=== PATIENT | female | born 1980 | race African-American/Black ===

== ENCOUNTER 2017-01-04 00:24 | Observation (INO) | payer OTHER ==
--- NOTE | 2017-01-04 01:03 | ED ---
Neuro HPI - General Chief Complaint: Neuro Symptoms/Deficit Stated Complaint: R Sided Numbness Time Seen by Provider: 01/04/17 00:44 Source: patient Mode of arrival: ambulatory Limitations: no limitations - History of Present Illness Is the patient presenting with stroke symptoms?: Yes Last Known Well Date: 01/03/17 Last Known Well Time: 20:30 Initial Comments: This patient is a 36-year-old woman presenting with complaint of right arm and leg numbness. The patient stated that she had been lying down at home at approximately 8:30 tonight when she noted the symptoms. She states that when this did not improve she decided to be evaluated here in emergency department. She had similar symptoms in September and was seen here, states that she had received TPA for this, and then was transferred to another hospital. She was told that she had had a stroke. Patient is denying headache, change in vision, speech, or swallowing, weakness or numbness of the left side. Patient is not having chest pain, dyspnea, cough. Location: right arm, right leg History of same: Yes Place: home Severity: moderate Quality: numb Improves With: none Worsens With: none Context: sudden onset Associated Symptoms: denies other symptoms Treatments Prior to Arrival: none - Related Data Home Medications: Home Medications Medication Instructions Recorded Confirmed Cyclobenzaprine [Flexeril] 10 mg PO TID PRN 07/11/15 01/04/17 Ibuprofen [Motrin] 800 mg PO Q8HR PRN 07/11/15 01/04/17 Aspirin 81 mg PO DAILY 01/04/17 01/04/17 Atorvastatin [Lipitor] 40 mg PO DAILY 01/04/17 01/04/17 Allergies/Adverse Reactions: Allergies Allergy/AdvReac Type Severity Reaction Status Date / Time No Known Allergies Allergy Verified 01/04/17 00:30 Review of Systems ROS Statement: Those systems with pertinent positive or pertinent negative responses have been documented in the HPI. ROS Other: All systems not noted in ROS Statement are negative. Constitutional: Denies: fever, chills Eyes: Denies: eye pain, vision change ENT: Denies: hearing loss Respiratory: Denies: cough, dyspnea Cardiovascular: Denies: chest pain, palpitations, orthopnea, syncope Gastrointestinal: Denies: abdominal pain, vomiting, diarrhea Genitourinary: Denies: dysuria, hematuria Musculoskeletal: Denies: back pain Skin: Denies: rash Neurological: Reports: numbness. Denies: headache, weakness, confusion, abnormal gait Hematological/Lymphatic: Denies: easy bleeding General Exam Limitations: no limitations General appearance: alert, in no apparent distress, obese Head exam: Present: atraumatic, normocephalic Eye exam: Present: normal appearance, PERRL, EOMI. Absent: scleral icterus, conjunctival injection, nystagmus ENT exam: Present: normal oropharynx, mucous membranes moist Neck exam: Present: normal inspection Respiratory exam: Present: normal lung sounds bilaterally. Absent: respiratory distress, wheezes, rales, rhonchi, stridor Cardiovascular Exam: Present: regular rate, normal rhythm, normal heart sounds. Absent: systolic murmur, diastolic murmur, rubs, gallop GI/Abdominal exam: Present: soft. Absent: tenderness, guarding, rebound Extremities exam: Present: normal inspection, normal capillary refill. Absent: pedal edema, calf tenderness Back exam: Present: normal inspection Neurological exam: Present: alert, oriented X3, CN II-XII intact, other ( Patient has 5 out of 5 strength throughout the extremities however there is some mild subjective weakness in the right upper and lower extremities when compared with the contralateral.) Skin exam: Present: warm, dry, intact, normal color. Absent: rash Stroke MDM - Lab Data Result diagrams: 01/04/17 00:45 01/04/17 00:45 Lab Results 01/04/17 01/04/17 01/04/17 Range/Units 00:45 00:45 00:45 WBC 9.5 (3.8-10.6) k/uL RBC 4.86 (3.80-5.40) m/uL Hgb 13.6 (11.4-16.0) gm/dL Hct 43.2 (34.0-46.0) % MCV 88.9 (80.0-100.0) fL MCH 27.9 (25.0-35.0) pg MCHC 31.4 (31.0-37.0) g/dL RDW 13.5 (11.5-15.5) % Plt Count 308 (150-450) k/uL Neutrophils % 52 % Lymphocytes % 35 % Monocytes % 6 % Eosinophils % 3 % Basophils % 1 % Neutrophils # 5.0 (1.3-7.7) k/uL Lymphocytes # 3.4 (1.0-4.8) k/uL Monocytes # 0.6 (0-1.0) k/uL Eosinophils # 0.3 (0-0.7) k/uL Basophils # 0.1 (0-0.2) k/uL PT (9.0-12.0) sec INR (<1.1) APTT (22.0-30.0) sec Sodium 142 (137-145) mmol/L Potassium 4.3 (3.5-5.1) mmol/L Chloride 110 H (98-107) mmol/L Carbon Dioxide 22 (22-30) mmol/L Anion Gap 10 mmol/L BUN 10 (7-17) mg/dL Creatinine 0.70 (0.52-1.04) mg/dL Est GFR (MDRD) Af Amer >60 (>60 ml/min/1.73 sqM) Est GFR (MDRD) Non-Af >60 (>60 ml/min/1.73 sqM) Glucose 114 H (74-99) mg/dL Calcium 9.0 (8.4-10.2) mg/dL Total Bilirubin 0.4 (0.2-1.3) mg/dL AST 15 (14-36) U/L ALT 24 (9-52) U/L Alkaline Phosphatase 71 (38-126) U/L Total Creatine Kinase 69 (30-135) U/L CK-MB (CK-2) <0.2 (0.0-2.4) ng/mL CK-MB (CK-2) Rel Index Troponin I <0.012 (0.000-0.034) ng/mL Total Protein 6.7 (6.3-8.2) g/dL Albumin 3.7 (3.5-5.0) g/dL 01/04/17 Range/Units 00:45 WBC (3.8-10.6) k/uL RBC (3.80-5.40) m/uL Hgb (11.4-16.0) gm/dL Hct (34.0-46.0) % MCV (80.0-100.0) fL MCH (25.0-35.0) pg MCHC (31.0-37.0) g/dL RDW (11.5-15.5) % Plt Count (150-450) k/uL Neutrophils % % Lymphocytes % % Monocytes % % Eosinophils % % Basophils % % Neutrophils # (1.3-7.7) k/uL Lymphocytes # (1.0-4.8) k/uL Monocytes # (0-1.0) k/uL Eosinophils # (0-0.7) k/uL Basophils # (0-0.2) k/uL PT 10.3 (9.0-12.0) sec INR 1.0 (<1.1) APTT 24.6 (22.0-30.0) sec Sodium (137-145) mmol/L Potassium (3.5-5.1) mmol/L Chloride (98-107) mmol/L Carbon Dioxide (22-30) mmol/L Anion Gap mmol/L BUN (7-17) mg/dL Creatinine (0.52-1.04) mg/dL Est GFR (MDRD) Af Amer (>60 ml/min/1.73 sqM) Est GFR (MDRD) Non-Af (>60 ml/min/1.73 sqM) Glucose (74-99) mg/dL Calcium (8.4-10.2) mg/dL Total Bilirubin (0.2-1.3) mg/dL AST (14-36) U/L ALT (9-52) U/L Alkaline Phosphatase (38-126) U/L Total Creatine Kinase (30-135) U/L CK-MB (CK-2) (0.0-2.4) ng/mL CK-MB (CK-2) Rel Index Troponin I (0.000-0.034) ng/mL Total Protein (6.3-8.2) g/dL Albumin (3.5-5.0) g/dL Past Medical History Additional Past Medical History / Comment(s): back pain, CVA History of Any Multi-Drug Resistant Organisms: None Reported Past Surgical History: Hernia Repair, Tubal Ligation Past Psychological History: Anxiety Smoking Status: Current every day smoker Past Alcohol Use History: Occasional Past Drug Use History: None Reported Course Vital Signs 01/04/17 01/04/17 00:26 01:14 Temperature 97.4 F L Pulse Rate 106 H 94 Respiratory 20 16 Rate Blood Pressure 158/110 134/96 O2 Sat by Pulse 100 97 Oximetry Disposition Clinical Impression: Transient cerebral ischemia Disposition: ADMITTED IP TO THIS HOSP Condition: Fair
[2017-01-04 01:09] LABS: Basophils # (A) 0.1 k/uL (0-0.2); Basophils % (A) 1 %; CH 28.3; CHCM 32.1; Eosinophils # (A) 0.3 k/uL (0-0.7); Eosinophils % (A) 3 %; HCT 43.2 % (34.0-46.0); HDW 2.41; HGB 13.6 gm/dL (11.4-16.0); Luc # (Auto) 0.27; Luc % (Auto) 3; Lymphocytes # (A) 3.4 k/uL (1.0-4.8); Lymphocytes % (A) 35 %; MCH 27.9 pg (25.0-35.0); MCHC 31.4 g/dL (31.0-37.0); MCV 88.9 fL (80.0-100.0); Mean Platelet Volume 7.9; Monocytes # (A) 0.6 k/uL (0-1.0); Monocytes % (A) 6 %; Neutrophils % (A) 52 %; RBC 4.86 m/uL (3.80-5.40); RDW 13.5 % (11.5-15.5); WBC 9.5 k/uL (3.8-10.6); WBC (Perox) 9.55
[2017-01-04 01:16] LABS: Partial Thromboplastin Time 24.6 sec (22.0-30.0); Prothrombin Time 10.3 sec (9.0-12.0)
[2017-01-04 01:17] LABS: ALT 24 U/L (9-52); AST 15 U/L (14-36); Alkaline Phosphatase 71 U/L (38-126); Anion Gap 10 mmol/L; Blood Urea Nitrogen 10 mg/dL (7-17); Carbon Dioxide 22 mmol/L (22-30); Chloride 110 mmol/L (98-107); Glucose 114 mg/dL (74-99); Non-African American GFR(MDRD) >60 (>60 ml/min/1.73 sqM); Potassium 4.3 mmol/L (3.5-5.1); Sodium 142 mmol/L (137-145); Total Bilirubin 0.4 mg/dL (0.2-1.3); Total Protein 6.7 g/dL (6.3-8.2)
[2017-01-04 01:26] LABS: Creatine Kinase 69 U/L (30-135)
[2017-01-04 01:39] LABS: Creatine Kinase MB <0.2 ng/mL (0.0-2.4); Troponin I <0.012 ng/mL (0.000-0.034)
--- NOTE | 2017-01-04 01:45 | CT ---
EXAM: CT Head Without Intravenous Contrast. CLINICAL HISTORY: Reason: Neuro Deficits TECHNIQUE: Axial computed tomography images of the head/brain without intravenous contrast. CTDI is 57.40 mGy and DLP is 1098.80 mGy-cm COMPARISON: CT head 09/29/2016 FINDINGS: Artifacts: Metallic artifact left occipital region partially obscuring cerebellum Brain: No evidence of acute cerebral infarction or intracranial hemorrhage. No mass effect or midline shift. No abnormal extra-axial collections. . Ventricles: Unremarkable. No ventriculomegaly. Bones/joints: No evidence of skull fracture. Sinuses: Unremarkable as visualized. No acute sinusitis. Mastoid air cells: Unremarkable as visualized. No mastoid effusion. IMPRESSION: No evidence of acute intracranial abnormality.
--- NOTE | 2017-01-04 02:14 | XR ---
EXAM: XR Chest, 1 View. CLINICAL HISTORY: Reason: altered mental status TECHNIQUE: Frontal view of the chest. COMPARISON: No relevant prior studies available. FINDINGS: Lungs: Lungs are clear. Pleural space: No evidence of pleural disease or effusion. No pneumothorax. Heart: Heart size and mediastinal structures are within normal limits. Mediastinum: Unremarkable. Bones/joints: Unremarkable. IMPRESSION: No evidence of acute cardiopulmonary disease.
[2017-01-04] MEDS ORDERED: SODIUM CHLORIDE 0.9% 1,000 ML IV SCH (03:00)
[2017-01-04 03:42] LABS: Glucose,Whole Blood 110 mg/dL (75-99)
[2017-01-04 04:01] VITALS: BMI 60.6
[2017-01-04] MEDS: DOCUSATE 100 MG CAP PO SCH ×2 (08:03→16:30)
[2017-01-04] MEDS: FAMOTIDINE 20 MG TAB PO SCH ×2 (08:03→21:00)
--- NOTE | 2017-01-04 08:24 | US ---
EXAMINATION TYPE: US carotid duplex BILAT DATE OF EXAM: 01/04/2017 8:11 AM COMPARISON: NONE CLINICAL HISTORY: Stenosis. Right sided numbness EXAM MEASUREMENTS: RIGHT: Peak Systolic Velocity (PSV) cm/sec ----- Right CCA: 131.9 ----- Right ICA: 98.3 ----- Right ECA: 104.2 ICA/CCA ratio: 0.7 RIGHT: End Diastole cm/sec ----- Right CCA: 21.5 ----- Right ICA: 25.4 ----- Right ECA: 33.3 LEFT: Peak Systolic Velocity (PSV) cm/sec ----- Left CCA: 141.7 ----- Left ICA: 93.5 ----- Left ECA: 83.8 ICA/CCA ratio: 0.7 LEFT: End Diastole cm/sec ----- Left CCA: 27.4 ----- Left ICA: 33.8 ----- Left ECA: 11.1 VERTEBRALS (direction of flow): Right Vertebral: unable to visualize Left Vertebral: antegrade IMPRESSION: Minimal plaque noted bilateral bifurcations. No significant stenosis. Unable to visuali ze right vertebral artery Criteria for Assigning % of Stenosis / Diameter reduction (Estimation based on the indirect measurements of the internal carotid artery velocities (ICA PSV). 1. Normal (no stenosis)=ICA PSV < 125 cm/s: ratio < 2.0: ICA EDV<40 cm/s. 2. Less than 50% stenosis=ICA PSV < 125 cm/s: ratio < 2.0: ICA EDV<40 cm/s. 3. 50 to 69% stenosis=ICA PSV of 125 to 230 cm/s: ration 2.0 ? 4.0: ICA EDV 40-100 cm/s. 4. Greater than 70% stenosis to near occlusion= ICA PSV > 230 cm/s: ratio > 4.0: ICA EDV > 100 cm/s. 5. Near occlusion= ICA PSV velocities may be low or undetectable: variable ratio and ICA EDV. 6. Total occlusion=unable to detect flow.
--- NOTE | 2017-01-04 10:41 | ECHOF ---
Referral Reason:Thrombus MEASUREMENTS -------- HEIGHT: 172.7 cm WEIGHT: 172.4 kg BP: 98/61 RVIDd: 3.2 cm (< 3.3) IVSd: 1.2 cm (0.6 - 1.1) LVIDd: 3.5 cm (3.9 - 5.3) LVPWd: 1.3 cm (0.6 - 1.1) IVSs: 1.6 cm LVIDs: 2.5 cm LVPWs: 2.0 cm LA Diam: 3.2 cm (2.7 - 3.8) LAESV Index (A-L): 12.94 ml/m Ao Diam: 3.1 cm (2.0 - 3.7) AV Cusp: 2.3 cm (1.5 - 2.6) MV EXCURSION: 13.666 mm (> 18.000) MV EF SLOPE: 48 mm/s (70 - 150) EPSS: 0.4 cm MV E Boaz: 0.74 m/s MV DecT: 307 ms MV A Boaz: 0.53 m/s MV E/A Ratio: 1.40 FINDINGS -------- Sinus rhythm. This was a technically good study. The left ventricular size is normal. There is mild concentric left ventricular hypertrophy. Overall left ventricular systolic function is normal with, an EF between 60 - 65 %. The right ventricle is normal in size. Normal LA size by volume 22+/-6 ml/m2. The right atrium is normal in size. The aortic valve is trileaflet and appears structurally normal. Normal appearing mitral valve. No mitral regurgitation. The tricuspid valve appears structurally normal. No regurgitation noted Trace/mild (physiologic) pulmonic regurgitation. The aortic root size is normal. Normal inferior vena cava with normal inspiratory collapse consistent with estimated right atrial pressure of 5 mmHg. There is no pericardial effusion. CONCLUSIONS -------- 1. Sinus rhythm. 2. The tricuspid valve appears structurally normal. 3. Trace/mild (physiologic) pulmonic regurgitation. 4. The aortic root size is normal. 5. Normal inferior vena cava with normal inspiratory collapse consistent with estimated right atrial pressure of 5 mmHg. 6. There is no pericardial effusion. 7. This was a technically good study. 8. The left ventricular size is normal. 9. There is mild concentric left ventricular hypertrophy. 10. Overall left ventricular systolic function is normal with, an EF between 60 - 65 %. 11. The right ventricle is normal in size. 12. Normal LA size by volume 22+/-6 ml/m2. 13. The aortic valve is trileaflet and appears structurally normal. 14. Normal appearing mitral valve. SENIOR BUSINESS MANAGER: Leonor Pacheco RDCS
[2017-01-04] MEDS ORDERED: ALPRAZolam 0.25 MG TAB PO PRN (11:22)
--- NOTE | 2017-01-04 11:27 | P.HPIM ---
History of Present Illness H&P Date: 01/04/17 Chief Complaint: Right arm numbness and leg 36-year-old morbid obese female presented to the emergency room to be evaluated for a chief complaint of right arm and right leg numbness. Patient stated occurred around 8:30 in the evening she was lying down she noted the symptoms. She stated that when they did not improve she decided to be evaluated in the emergency room. Patient stated she had a similar episode in September 2016. Patient stated at that time she was given TPA and was transferred to another tertiary center patient states she was told that she had a stroke. admission in September 2016 patient did have a CTA which showed no intracranial bleed. Patient was given TPA. Patient continued to have persistent right-sided deficit. At that time the decision was to transfer the patient to [facility] Patient this admission is denying headache change in vision speech or swallowing. Patient denies any numbness on the left side. Patient denies chest pain shortness of breath or cough no recent cough fever or chills. Patient states is been no new changes in her health history. Patient will move all extremities appropriately. Face is symmetric A neurology consultation pending patient has had echocardiogram done on January 04 shows left ventricular systolic function normal with an EF between 60 and 65%.. Carotid Doppler studies were negative there was no significant carotid stenosis electrolytes were reviewed normal limits blood sugar 110 troponins negative Review of Systems Essentially unremarkable except as mentioned in the present illness Past Medical History Past Medical History: CVA/TIA, Hyperlipidemia Additional Past Medical History / Comment(s): back pain, CVA History of Any Multi-Drug Resistant Organisms: None Reported Past Surgical History: Hernia Repair, Tubal Ligation Past Anesthesia/Blood Transfusion Reactions: No Reported Reaction Past Psychological History: Anxiety Smoking Status: Current every day smoker Past Alcohol Use History: Occasional Past Drug Use History: None Reported - Past Family History Father Family Medical History: Cancer Additional Family Medical History / Comment(s): colon CA Mother Family Medical History: Asthma, Diabetes Mellitus Medications and Allergies Home Medications Medication Instructions Recorded Confirmed Type Cyclobenzaprine [Flexeril] 10 mg PO TID PRN 07/11/15 01/04/17 History Ibuprofen [Motrin] 800 mg PO QID PRN 07/11/15 01/04/17 History ALPRAZolam [Xanax] 0.25 mg PO TID PRN 01/04/17 01/04/17 History Aspirin 81 mg PO DAILY 01/04/17 01/04/17 History Atorvastatin [Lipitor] 40 mg PO DAILY 01/04/17 01/04/17 History PARoxetine HCL [Paxil] 40 mg PO DAILY 01/04/17 01/04/17 History Allergies Allergy/AdvReac Type Severity Reaction Status Date / Time No Known Allergies Allergy Verified 01/04/17 00:30 Physical Exam Vitals: Vital Signs Temp Pulse Pulse Pulse Resp BP BP 01/04/17 10:48 97.7 F 81 20 140/95 01/04/17 08:00 98.1 F 69 15 93/62 01/04/17 07:00 63 21 98/61 01/04/17 06:00 67 18 95/52 01/04/17 05:00 94 35 H 117/71 01/04/17 04:00 123 H 23 01/04/17 03:50 98.0 F 150 H 22 177/115 01/04/17 03:27 82 20 115/59 Pulse Ox 01/04/17 10:48 99 01/04/17 08:00 97 01/04/17 07:00 98 01/04/17 06:00 96 01/04/17 05:00 99 01/04/17 04:00 98 01/04/17 03:50 01/04/17 03:27 Intake and Output 01/03/17 01/04/17 01/04/17 22:59 06:59 14:59 Intake Total 100 Balance 100 Intake: IV 100 Sodium Chloride 0.9% 1, 100 000 ml @ 100 mls/hr IV . Q10H FORMERLY [facility], 1928–1983 Rx#:[id number] Other: Voiding Method Toilet # Voids 1 Weight 180.8 kg GENERAL APPEARANCE: 36-year-old female patient is alert, oriented 3 Sitting up in bed appears in no acute distress VITAL SIGNS: Reviewed HEENT: Head is normocephalic and atraumatic. Pupils are equal and reactive. The nares are patent. Oropharynx is clear without lesions. NECK: Supple without lymphadenopathy. Traches midline. HEART: S1, S2. Regular rate and rhythm. Denying chest pain no murmur LUNGS: No crackles or wheezes are heard. Adequate air movement bilaterally on room air sats 95% ABDOMEN: Soft obese, nontender, nondistended with good bowel sounds. No peritoneal signs. No palpable organomegaly or masses. EXTREMITIES: Normal skin color and turgor. No cyanosis, rash, ulceration, clubbing or edema. Radial pedal pulses are 2/4 bilaterally. NEUROLOGICAL: No focal deficits. Strength and sensation are grossly intact. Moves all extremities appropriately no pronator drift stating the numbness on the right upper and lower extremity resolving no numbness involving face no numbness involving the left side Results CBC & Chem 7: 01/04/17 00:45 01/04/17 00:45 Labs: Abnormal Lab Results - Last 24 Hours (Table) 01/04/17 Range/Units 03:39 POC Glucose (mg/dL) 110 H (75-99) mg/dL Thrombosis Risk Factor Assmnt - Choose All That Apply Any of the Below Risk Factors Present?: Yes Each Factor Represents 1 point: Obesity (BMI >25) Other Risk Factors: No Other congenital or acquired thrombophilia - If yes, enter type in comment: No Thrombosis Risk Factor Assessment Total Risk Factor Score: 1 Thrombosis Risk Factor Assessment Level: Low Risk Assessment and Plan Plan: Impression Present on admission new onset left upper extremity and lower extremity numbness suspect TIA Super morbid obesity BMI 60 Suspect underlying obstructive sleep apnea Dyslipidemia Recent episode September 2016 right side numbness received TPA Preserved LV function echocardiogram January 04 EF 55% Normal carotid Doppler studies no evidence of carotid artery stenosis Depressive anxiety disorder nonspecified Plan Resume home meds as appropriate PT OT eval Continue aspirin and Lipitor DVT and GI prophylaxis Await neurology eval pending Further recommendations The above dictated assessment and findings were discussed with dr albrecht Impression and the plan of care have been dictated as directed. Nasima Blanco nurse practitioner acting as a scribe for dr albrecht
[2017-01-04 11:42] LABS: Cholesterol 161 mg/dL (<200); HDL Cholesterol 57 mg/dL (40-60); Triglycerides 82 mg/dL (<150)
--- NOTE | 2017-01-04 17:24 | HP ---
DATE OF ADMISSION: 01/04/2017 CHIEF COMPLAINT: Dysesthesias in the right upper and lower extremities. HISTORY OF PRESENT ILLNESS: This is another admission for this 36-year-old -Citizen Of [place] female. Her history is somewhat difficult. She presented because she felt some weakness and dysesthesias in the right upper extremity. She is right-handed. She had no trouble with speech. She had no change in vision or hearing. She came to the emergency room and apparently studies were negative. In 2005 she reports she had a TIA. In September 2016 she was in the hospital for some right-sided weakness which was transient. She was in the office on October 29, 2016, and was to return for a complete physical, but never did. She came in this time because of the right-sided complaints. She has had no headache. REVIEW OF SYSTEMS: She has had no change in vision or hearing, headache, history of hypertension, syncope, dizziness, chest pain, shortness of breath, cough, hemoptysis, heart disease, murmurs, rheumatic fever, palpitations, abdominal pain, hematemesis, melena, hematochezia, jaundice, hematuria, frequency, urgency, vaginal discharge or bleeding, arthralgias, diabetes, etc. Past medical history, family history, and personal and social histories reveal that she is NOT ALLERGIC TO ANY MEDICATION. She has been on: 1. Lipitor 40 mg a day. 2. Aspirin 81 mg daily. 3. Ibuprofen 800 mg 4 times a day. 4. Cyclobenzaprine 10 mg t.i.d. p.r.n. for back pain. She is overweight. Remainder of her history is unremarkable. The only surgery she has had is a tubal ligation. She does smoke. She drinks occasionally. PHYSICAL EXAMINATION: Blood pressure is 112/76 with a pulse of 108 and regular, respirations of 18. She is afebrile. In general she appeared to be an overweight and in no acute distress. Skin color is normal. Skin is warm and dry. Lymph nodes are not enlarged. Head, ears, eyes, nose, mouth and throat are normal. Neck veins are not distended. Thyroid was not enlarged. Chest is clear. Cardiac exam is normal, with normal sinus rhythm with no murmurs or extra sounds. The abdomen is soft, nontender, without any visceromegaly or masses. It is protuberant. Extremities are normal. She seems to have a little bit of weakness in the right upper extremity, but this seems to be more in terms of dropper tank storage. When fingers are challenged independently, strength seems to be normal. ( ) ongoing. She is admitted to the hospital with the diagnoses: 1. ? left-sided cerebrovascular accident or transient ischemic attack. 2. Previous transient ischemic attack/cerebrovascular accidents. 3. Rule out hypercoagulable state. PLAN: 1. Bed rest. 2. IV fluids. 3. Frequent monitoring of her neurologic status and vital signs. 4. Neurology consult and workup.
--- NOTE | 2017-01-04 17:54 | P.CNNES ---
History of Present Illness Consult date: 01/04/17 History of Present Illness: The patient 36-year-old woman with history of right arm and right leg tingling which has been intermittent since yesterday evening. The patient had a similar episode of right arm and right leg tingling occurring in September 2016. At that time she was transferred to an outside hospital. She had received TPA and was transferred to [place]. She states she had an MRI there which was normal. The patient had an echocardiogram and carotid ultrasound which were unremarkable. She had a CT of the brain which did not show any acute findings. She reports that the tingling occurs it lasts for maybe 10-15 minutes only. She denies any neck pain She reports that yesterday evening she had a episode of right arm and leg tingling sensation which showed been coming and going since last evening. The patient has been on baby aspirin but has not taken it consistently. At the time of her previous admission she was transferred to [place] and had received TPA. She states she has been and otherwise doing fine since September up until yesterday. [place] [facility] she had similar findings of left sided tingling in the arm and leg. He reports she had an MRI in [place] last September and she reports it was negative. X Patient denies any weakness dizziness speech disturbance or any other neurologic complaint. Review of Systems Constitutional: Denies chills, Denies fever Eyes: denies blurred vision, denies pain Ears, nose, mouth and throat: Denies headache, Denies sore throat Cardiovascular: Denies chest pain, Denies shortness of breath Gastrointestinal: Denies abdominal pain, Denies diarrhea, Denies nausea, Denies vomiting Genitourinary: Denies dysuria, Denies hematuria Musculoskeletal: Denies myalgias Integumentary: Denies pruritus, Denies rash Neurological: Denies numbness, Denies weakness Psychiatric: Denies anxiety, Denies depression Endocrine: Denies fatigue, Denies weight change Past Medical History Past Medical History: CVA/TIA, Hyperlipidemia Additional Past Medical History / Comment(s): back pain, CVA History of Any Multi-Drug Resistant Organisms: None Reported Past Surgical History: Hernia Repair, Tubal Ligation Past Anesthesia/Blood Transfusion Reactions: No Reported Reaction Past Psychological History: Anxiety Smoking Status: Current every day smoker Past Alcohol Use History: Occasional Past Drug Use History: None Reported - Past Family History Father Family Medical History: Cancer Additional Family Medical History / Comment(s): colon CA Mother Family Medical History: Asthma, Diabetes Mellitus Medications and Allergies Home Medications Medication Instructions Recorded Confirmed Type Cyclobenzaprine [Flexeril] 10 mg PO TID PRN 07/11/15 01/04/17 History Ibuprofen [Motrin] 800 mg PO QID PRN 07/11/15 01/04/17 History ALPRAZolam [Xanax] 0.25 mg PO TID PRN 01/04/17 01/04/17 History Aspirin 81 mg PO DAILY 01/04/17 01/04/17 History Atorvastatin [Lipitor] 40 mg PO DAILY 01/04/17 01/04/17 History PARoxetine HCL [Paxil] 40 mg PO DAILY 01/04/17 01/04/17 History Allergies Allergy/AdvReac Type Severity Reaction Status Date / Time No Known Allergies Allergy Verified 01/04/17 00:30 Physical Examination - Vital Signs Vital Signs: Vital Signs Temp Pulse Pulse Pulse Resp BP BP 01/04/17 15:00 97.3 F L 85 19 126/72 01/04/17 10:48 97.7 F 81 20 140/95 01/04/17 08:00 98.1 F 69 15 93/62 01/04/17 07:00 63 21 98/61 01/04/17 06:00 67 18 95/52 01/04/17 05:00 94 35 H 117/71 01/04/17 04:00 123 H 23 01/04/17 03:50 98.0 F 150 H 22 177/115 01/04/17 03:27 82 20 115/59 Pulse Ox 01/04/17 15:00 99 01/04/17 10:48 99 01/04/17 08:00 97 01/04/17 07:00 98 01/04/17 06:00 96 01/04/17 05:00 99 01/04/17 04:00 98 01/04/17 03:50 01/04/17 03:27 Intake and Output 01/04/17 01/04/17 01/04/17 06:59 14:59 22:59 Intake Total 100 Balance 100 Intake: IV 100 Sodium Chloride 0.9% 1, 100 000 ml @ 100 mls/hr IV . Q10H [facility] Rx#:[id number] Other: Voiding Method Toilet Toilet # Voids 1 2 Weight 180.8 kg - Constitutional General appearance: obese - EENT EENT: PERRL, hearing intact, vision intact - Respiratory Respiratory: lungs clear - Cardiovascular Cardiovascular: regular rate, normal S1, normal S2 - Integumentary Integumentary: normal - Neurologic Cranial nerve examination: EOMI, VFF, face symmetric, tongue midline Sensorimotor examination: other (Decreased light touch by 30% right arm) Detailed motor examination: grossly full strength in all extremities - Psychiatric Psychiatric: mood/affect appropriate Results - Laboratory Findings CBC and BMP: 01/04/17 00:45 01/04/17 00:45 Abnormal Lab Findings: Abnormal Labs 01/04/17 03:39 POC Glucose (mg/dL) 110 H Assessment and Plan (1) Transient cerebral ischemia Status: Acute Code(s): G45.9 - TRANSIENT CEREBRAL ISCHEMIC ATTACK, UNSPECIFIED Plan: The patient is a 36-year-old woman with history of right arm and right leg tingling. Currently she has only minimal right arm tingling. Her neurologic examination fails to demonstrate any focal deficit. Recommend adding Plavix to current stroke prophylactic regimen patient had a echo and carotid ultrasound which were unremarkable. Recommend MRI which can be done outpatient to evaluate for possible demyelinating disorder
[2017-01-04 23:49] VITALS: TEMP 98.2
[2017-01-05] MEDS: DOCUSATE 100 MG CAP PO SCH ×2 (00:09→07:54)
[2017-01-05 07:49] VITALS: BP 149/66; PULSE 72; RESP 19
[2017-01-05] MEDS: FAMOTIDINE 20 MG TAB PO SCH (07:55)
[2017-01-05] MEDS ORDERED: PARoxetine 20 MG TAB PO SCH (09:00)
[2017-01-05] MEDS ORDERED: CLOPIDOGREL 75 MG TAB PO SCH (09:00)
[2017-01-05] MEDS ORDERED: ASPIRIN 81 MG CHEW PO SCH (09:00)
[2017-01-05] MEDS ORDERED: ATORVASTATIN 40 MG TAB PO SCH (09:00)
--- NOTE | 2017-01-05 12:09 | P.DS ---
Providers Date of admission: 01/04/17 02:53 Expected date of discharge: 01/05/17 Attending physician: Sung Albrecht Consults: Dr. Santamaria Primary care physician: Sung Albrecht Hospital Course: 6-year-old morbid obese female presented to the emergency room to be evaluated for a chief complaint of right arm and right leg numbness. Patient stated occurred around 8:30 in the evening she was lying down she noted the symptoms. She stated that when they did not improve she decided to be evaluated in the emergency room. Patient stated she had a similar episode in September 2016. Patient stated at that time she was given TPA and was transferred to another tertiary center patient states she was told that she had a stroke. admission in September 2016 patient did have a CTA which showed no intracranial bleed. Patient was given TPA. Patient continued to have persistent right-sided deficit. At that time the decision was to transfer the patient to [facility] Patient this admission is denying headache change in vision speech or swallowing. Patient denies any numbness on the left side. Patient denies chest pain shortness of breath or cough no recent cough fever or chills. Patient states is been no new changes in her health history. Patient will move all extremities appropriately. Face is symmetric patient had an MRI in 2015 and September she reports it was a negative study. Neurology recommended adding Plavix and repeating the MRI in the outpatient setting for possible demyelinating disorder. A neurology consultation obtained patient has had echocardiogram done on January 04 shows left ventricular systolic function normal with an EF between 60 and 65% .. Carotid Doppler studies were negative there was no significant carotid stenosis electrolytes were reviewed normal limits blood sugar 110 troponins negative At the time of discharge symptoms had resolved patient was felt to be back to baseline appropriate to proceed with a discharge to home Impression Present on admission new onset right upper extremity and lower extremity numbness suspect TIA Super morbid obesity BMI 60 Suspect underlying obstructive sleep apnea Dyslipidemia Recent episode September 2016 right side numbness received TPA Preserved LV function echocardiogram January 04 EF 55% Normal carotid Doppler studies no evidence of carotid artery stenosis Depressive anxiety disorder nonspecified The above dictated assessment and findings were discussed with Dr. Albrecht Impression and the plan of care have been dictated as directed. Nasima Blanco nurse practitioner acting as a scribe for dr albrecht Patient Condition at Discharge: Fair Plan - Discharge Summary New Discharge Prescriptions: Clopidogrel [Plavix] 75 mg PO DAILY #30 tab Discharge Medication List Cyclobenzaprine [Flexeril] 10 mg PO TID PRN 07/11/15 [History] Ibuprofen [Motrin] 800 mg PO QID PRN 07/11/15 [History] ALPRAZolam [Xanax] 0.25 mg PO TID PRN 01/04/17 [History] Aspirin 81 mg PO DAILY 01/04/17 [History] Atorvastatin [Lipitor] 40 mg PO DAILY 01/04/17 [History] PARoxetine HCL [Paxil] 40 mg PO DAILY 01/04/17 [History] Clopidogrel [Plavix] 75 mg PO DAILY #30 tab 01/05/17 [Rx] Follow up Appointment(s)/Referral(s): Sung Albrecht MD [Primary Care Provider] - 1-2 days Queenie Santamaria MD [STAFF PHYSICIAN] - 1 Week Discharge Disposition: HOME SELF-CARE
--- NOTE | 2017-01-05 21:40 | PN ---
DATE OF SERVICE: 01/05/2017 CHIEF COMPLAINT: Left-sided TIA? HISTORY OF PRESENT ILLNESS: This lady is doing well and almost all of her dysesthesias are gone from her affected side. She can probably go home. PHYSICAL EXAM: Her vital signs are normal. The chest is clear. Cardiac is normal. ABDOMEN: Soft, nontender. Neurologically, she is intact. IMPRESSION: Transient ischemic attack. PLAN: Probably home today and this will be arranged by the nurse practitioner.
== END 2017-01-05 17:03 | disposition home or self-care (01) ==
LOC: EC 00:24 → INTOOBSV 02:53 → 6ICU 02:53 → 4MS4W 10:18
PROVIDERS: ADMIT Family Medicine; ATTEND Family Medicine
DX: R20.0 Anesthesia of skin (principal); R20.8 Other disturbances of skin sensation; M54.9 Dorsalgia, unspecified; F41.9 Anxiety disorder, unspecified; F32.9 Major depressive disorder, single episode, unspecified; E78.5 Hyperlipidemia, unspecified; Z68.44 Body mass index [BMI] 60.0-69.9, adult; E66.01 Morbid (severe) obesity due to excess calories; F17.200 Nicotine dependence, unspecified, uncomplicated; Z79.899 Other long term (current) drug therapy; Z86.73 Personal history of transient ischemic attack (TIA), and cerebral infarction without residual deficits; Z83.3 Family history of diabetes mellitus; Z79.82 Long term (current) use of aspirin
CPT/HCPCS: 99285; 36415; 93005; 93306; 97161; 92610; 92523; 80061; 80053; 82550; 82553; 84484; 85025; 85610; 85730; 71010; 93880; 70450; G0378 ×2

== ENCOUNTER 2017-02-23 22:00 | Emergency (ER) | payer OTHER ==
[2017-02-23] MEDS ORDERED: HYDROmorphone 1 MG/ML 1 ML SYRINGE IVP STA (22:43)
--- NOTE | 2017-02-23 22:46 | ED ---
General Adult HPI - General Chief complaint: Extremity Injury, Lower Stated complaint: BACK PAIN Time Seen by Provider: 02/23/17 22:04 Source: patient, EMS, RN notes reviewed Mode of arrival: EMS Limitations: no limitations - History of Present Illness Initial comments: Patient is a 37-year-old female presents to the emergency room for evaluation of left-sided low back pain. Patient states she began having pain when she woke up on Wednesday. Patient states since then the pain has worsened. Patient states the pain slightly improves while standing or laying down flat. Patient states while standing she sometimes feels an aching/numbing sensation radiating down her left leg from her left lower back. Patient denies recent falls or trauma to her back. Patient states the pain is worse when she sitting up or bending forward. Patient states she has not been taking anything to relieve her symptoms. Patient denies any numbness or tingling in her toes. Patient denies saddle anesthesia. Patient denies urinary or fecal incontinence. Patient denies weakness. Patient states she is having 10 out of 10 constant pain and cannot get comfortable. - Related Data Home Medications Medication Instructions Recorded Confirmed Cyclobenzaprine [Flexeril] 10 mg PO TID PRN 07/11/15 02/23/17 Ibuprofen [Motrin] 800 mg PO QID PRN 07/11/15 02/23/17 ALPRAZolam [Xanax] 0.25 mg PO TID PRN 01/04/17 02/23/17 Aspirin 81 mg PO DAILY 01/04/17 02/23/17 Atorvastatin [Lipitor] 40 mg PO DAILY 01/04/17 02/23/17 PARoxetine HCL [Paxil] 40 mg PO DAILY 01/04/17 02/23/17 Acetaminophen Tab [Tylenol Tab] 2,000 mg PO BID PRN 02/23/17 02/23/17 Previous Rx's Medication Instructions Recorded Clopidogrel [Plavix] 75 mg PO DAILY #30 tab 01/05/17 HYDROcodone/APAP 5-325MG [[place] 1 tab PO Q6HR PRN #12 tab 02/24/17 5-325] predniSONE 40 mg PO DAILY 4 Days 02/24/17 Allergies Allergy/AdvReac Type Severity Reaction Status Date / Time No Known Allergies Allergy Verified 02/23/17 22:32 Review of Systems ROS Statement: Those systems with pertinent positive or pertinent negative responses have been documented in the HPI. ROS Other: All systems not noted in ROS Statement are negative. Past Medical History Past Medical History: CVA/TIA, Hyperlipidemia Additional Past Medical History / Comment(s): back pain, CVA History of Any Multi-Drug Resistant Organisms: None Reported Past Surgical History: Hernia Repair, Tubal Ligation Past Anesthesia/Blood Transfusion Reactions: No Reported Reaction Past Psychological History: Anxiety Smoking Status: Current every day smoker Past Alcohol Use History: Occasional Past Drug Use History: None Reported - Past Family History Father Family Medical History: Cancer Additional Family Medical History / Comment(s): colon CA Mother Family Medical History: Asthma, Diabetes Mellitus General Exam - General Exam Comments Initial Comments: Laying in exam room on the right side Limitations: no limitations General appearance: alert Head exam: Present: atraumatic, normocephalic, normal inspection Eye exam: Present: normal appearance ENT exam: Present: normal exam Neck exam: Present: normal inspection Respiratory exam: Present: normal lung sounds bilaterally. Absent: respiratory distress Cardiovascular Exam: Present: regular rate, normal rhythm, normal heart sounds Back exam: Present: normal inspection, full ROM, tenderness (Tenderness on palpating over left sciatic notch) Neurological exam: Present: alert, oriented X3 Psychiatric exam: Present: normal affect, normal mood Skin exam: Present: warm, dry, intact, normal color. Absent: rash Course Vital Signs 02/23/17 02/24/17 22:22 00:32 Temperature 97.8 F 97 F L Pulse Rate 71 79 Respiratory 16 18 Rate Blood Pressure 136/83 144/78 O2 Sat by Pulse 99 99 Oximetry Medical Decision Making - Medical Decision Making Patient is a 37-year-old female presents to the emergency room for evaluation of left-sided low back and leg pain. X-ray shows no acute findings. Patient's symptoms similar to sciatic pain. Patient states she is feeling better after medications given. Will send patient home with pain medications and prednisone and advised her to follow-up with her primary care provider. Patient states she understands everything that was discussed with her. Return parameters discussed. Case discussed with Dr. Mendoza. - Radiology Data Radiology results: report reviewed, image reviewed Disposition Clinical Impression: Lumbar back pain, Left sciatic nerve pain Disposition: HOME SELF-CARE Condition: Good Instructions: Sciatica (ED), Lumbar Radiculopathy (ED) Additional Instructions: Take medications as needed. Please up with primary care provider in 24-48 hours for reevaluation. If any new symptom arises or symptoms worsen, return to ER as soon as possible. Prescriptions: HYDROcodone/APAP 5-325MG [[place] 5-325] 1 tab PO Q6HR PRN #12 tab PRN Reason: Pain predniSONE 40 mg PO DAILY 4 Days Referrals: Sung Gipson MD [Primary Care Provider] - 1-2 days Time of Disposition: 00:22
--- NOTE | 2017-02-23 23:10 | XR ---
Lumbar Spine, 5 views INDICATION: Back pain COMPARISON: None. FINDINGS: Frontal, lateral, bilateral oblique, and cone-down lumbosacral views of the lumbar spine are provided. There are 5 nonrib-bearing lumbar vertebrae demonstrating mild dextroconvex curvature. There is normal vertebral body height and alignment without evidence of acute fracture or subluxation. Disc spaces are preserved. There are degenerative endplate changes at L5-S1 with anterior endplate osteophyte of L5. Oblique views demonstrate no evidence of pars defect. Sacroiliac joints are normally aligned. IMPRESSION: 1. No evidence of acute fracture or subluxation. 2. Mild discogenic degenerative disease at L5-S1 with anterior endplate osteophyte arising from the L5 inferior endplate. Disc heights are preserved.
[2017-02-24 00:33] VITALS: BP 144/78; PULSE 79; RESP 18; TEMP 97
== END 2017-02-24 00:33 | disposition home or self-care (01) ==
LOC: EC 22:00
DX: M54.5 Low back pain (principal); M54.32 Sciatica, left side; E78.5 Hyperlipidemia, unspecified; F41.9 Anxiety disorder, unspecified; F17.200 Nicotine dependence, unspecified, uncomplicated; Z86.73 Personal history of transient ischemic attack (TIA), and cerebral infarction without residual deficits; Z79.82 Long term (current) use of aspirin; Z79.899 Other long term (current) drug therapy
CPT/HCPCS: 72110; 99284; 96374; J1170

== ENCOUNTER 2018-12-24 21:07 | Emergency (ER) | payer OTHER ==
[2018-12-24] MEDS ORDERED: KETOROLAC 30 MG/ML 1 ML VIAL IVP STA (21:45)
[2018-12-24] MEDS ORDERED: methylPREDNISolone SOD SUCCI 125 MG/2 ML VIAL IV STA (21:45)
[2018-12-24] MEDS ORDERED: BENZONATATE 100 MG CAP PO STA (21:45)
[2018-12-24] MEDS ORDERED: cloNIDine HCL 0.1 MG TAB PO STA (21:45)
[2018-12-24] MEDS ORDERED: IPRATROPIUM-ALBUTEROL 3 ML NEB INHALATION STA (21:45)
[2018-12-24 22:11] VITALS: RESP 20
[2018-12-24 22:16] LABS: Basophils % (A) 0 %; Eosinophils # (A) 0.3 k/uL (0-0.7); Eosinophils % (A) 4 %; HCT 42.2 % (34.0-46.0); HGB 13.3 gm/dL (11.4-16.0); Lymphocytes # (A) 1.7 k/uL (1.0-4.8); Lymphocytes % (A) 21 %; MCH 28.1 pg (25.0-35.0); MCHC 31.5 g/dL (31.0-37.0); MCV 89.2 fL (80.0-100.0); Mean Platelet Volume 7.2; Monocytes # (A) 0.3 k/uL (0-1.0); Monocytes % (A) 4 %; Neutrophils # (A) 5.7 k/uL (1.3-7.7); Neutrophils % (A) 71 %; Platelet Count 271 k/uL (150-450); RBC 4.73 m/uL (3.80-5.40)
[2018-12-24 22:28] LABS: ALT 24 U/L (9-52); AST 16 U/L (14-36); Albumin 3.9 g/dL (3.5-5.0); Alkaline Phosphatase 87 U/L (38-126); Anion Gap 6 mmol/L; Blood Urea Nitrogen 11 mg/dL (7-17); Calcium 9.3 mg/dL (8.4-10.2); Carbon Dioxide 26 mmol/L (22-30); Chloride 108 mmol/L (98-107); Glucose 98 mg/dL (74-99); Magnesium 1.8 mg/dL (1.6-2.3); Potassium 3.7 mmol/L (3.5-5.1); Sodium 140 mmol/L (137-145); Total Bilirubin 0.4 mg/dL (0.2-1.3); Total Protein 7.2 g/dL (6.3-8.2)
[2018-12-24 22:29] LABS: D-Dimer 0.58 mg/L FEU (<0.60); INR 0.9 (<1.2); Partial Thromboplastin Time 24.7 sec (22.0-30.0); Prothrombin Time 10.1 sec (9.0-12.0)
--- NOTE | 2018-12-24 22:40 | ED ---
General Adult HPI - General Chief complaint: Upper Respiratory Infection Stated complaint: DAVY Time Seen by Provider: 12/24/18 21:30 Source: patient Mode of arrival: ambulatory Limitations: no limitations - History of Present Illness Initial comments: 38-year-old female patient presents to the emergency department today for evaluation of chest tightness, shortness of breath, and cough. Patient's issues of the cough for the last week when she woke this morning she was having pain in her chest and difficulty breathing. Patient states that he is going to go up green mucus. Denies any fevers states she has been chilled. Denies any sweats, nausea, or vomiting. Denies any radiation of the pain into her back. She denies any recent long car rides, calf pain, or history of DVT. Denies any use of hormonal medications. Denies any sore throat, nasal congestion, or ear pain. Patient denies any recent rash, abdominal pain, nausea, vomiting, diarrhea , constipation, back pain, numbness, tingling, dizziness, weakness, hematuria, dysuria, urinary urgency, urinary frequency, headache, visual changes, or any other complaints. - Related Data Home Medications Medication Instructions Recorded Confirmed Cyclobenzaprine [Flexeril] 10 mg PO TID PRN 07/11/15 02/23/17 Ibuprofen [Motrin] 800 mg PO QID PRN 07/11/15 02/23/17 ALPRAZolam [Xanax] 0.25 mg PO TID PRN 01/04/17 02/23/17 Aspirin 81 mg PO DAILY 01/04/17 02/23/17 Atorvastatin [Lipitor] 40 mg PO DAILY 01/04/17 02/23/17 PARoxetine HCL [Paxil] 40 mg PO DAILY 01/04/17 02/23/17 Acetaminophen Tab [Tylenol Tab] 2,000 mg PO BID PRN 02/23/17 02/23/17 Previous Rx's Medication Instructions Recorded Clopidogrel [Plavix] 75 mg PO DAILY #30 tab 01/05/17 HYDROcodone/APAP 5-325MG [[place] 1 tab PO Q6HR PRN #12 tab 02/24/17 5-325] predniSONE 40 mg PO DAILY 4 Days tab 02/24/17 Albuterol Sulfate [Proair Hfa] 1 - 2 puff INHALATION Q6HR PRN #1 12/24/18 inhaler Benzonatate [Tessalon Perles] 100 mg PO TID #15 cap 12/24/18 Promethazine 6.25MG/5Ml [Phenergan 6.25 mg PO HS #100 ml 12/24/18 Syrup] predniSONE 50 mg PO DAILY #5 tablet 12/24/18 Allergies Allergy/AdvReac Type Severity Reaction Status Date / Time No Known Allergies Allergy Verified 02/23/17 22:32 Review of Systems ROS Statement: Those systems with pertinent positive or pertinent negative responses have been documented in the HPI. ROS Other: All systems not noted in ROS Statement are negative. Past Medical History Past Medical History: CVA/TIA, Hyperlipidemia Additional Past Medical History / Comment(s): back pain, CVA History of Any Multi-Drug Resistant Organisms: None Reported Past Surgical History: Hernia Repair, Tubal Ligation Past Anesthesia/Blood Transfusion Reactions: No Reported Reaction Past Psychological History: Anxiety Smoking Status: Current every day smoker Past Alcohol Use History: Occasional Past Drug Use History: None Reported - Past Family History Father Family Medical History: Cancer Additional Family Medical History / Comment(s): colon CA Mother Family Medical History: Asthma, Diabetes Mellitus General Exam Limitations: no limitations General appearance: alert, in no apparent distress, other (This is a well- developed, well-nourished adult female patient in no acute distress. Vital signs upon presentation are temperature 97.5F, pulse 105, respirations 18, blood pressure 199/108, pulse ox 100% on room air.) Eye exam: Present: normal appearance, PERRL, EOMI. Absent: scleral icterus, conjunctival injection, periorbital swelling ENT exam: Present: normal exam, normal oropharynx, mucous membranes moist Respiratory exam: Present: normal lung sounds bilaterally. Absent: respiratory distress, wheezes, rales, rhonchi, stridor Cardiovascular Exam: Present: normal rhythm, tachycardia, normal heart sounds. Absent: systolic murmur, diastolic murmur, rubs, gallop, clicks GI/Abdominal exam: Present: soft, normal bowel sounds. Absent: distended, tenderness, guarding, rebound, rigid Neurological exam: Present: alert, oriented X3, CN II-XII intact Psychiatric exam: Present: normal affect, normal mood Skin exam: Present: warm, dry, intact, normal color. Absent: rash Course Vital Signs 12/24/18 12/24/18 12/24/18 21:19 21:49 22:05 Temperature 97.5 F L Pulse Rate 105 H 109 H 103 H Respiratory 18 22 Rate Blood Pressure 199/108 198/109 O2 Sat by Pulse 100 100 Oximetry 12/24/18 12/24/18 12/24/18 22:10 22:12 22:47 Temperature 98.1 F Pulse Rate 103 H 91 Respiratory 20 20 Rate Blood Pressure 146/85 O2 Sat by Pulse 98 Oximetry EKG Findings - EKG Comments: EKG Findings:: EKG obtained at 2245 shows normal sinus rhythm with a ventricular rate of 92, AL interval 182, QRS duration 86, QT 374, QTC 462. No evidence of ST elevation or depression. Medical Decision Making - Medical Decision Making 38-year-old female patient presented to the emergency department today for evaluation of chest tightness, shortness of breath, and cough. Physical examination did reveal clear equal lung sounds. She is afebrile. Upon arrival patient's blood pressure was elevated heart rate was mildly elevated. Chest x- ray showed no acute cardio pulmonary process. We did obtain labs. D-dimer was 0.58. Patient's vital signs did improve during stay. Patient symptoms are consistent with acute bronchitis, there is low suspicion for pulmonary embolism as patient has low risk factors. Patient does report improvement of symptoms with breathing treatment and cough medications administered. She'll be discharged home at this time with steroids, cough medication, Pro Air inhaler. She is instructed to follow-up with her primary care physician for recheck in 1- 2 days. Return parameters discussed in detail. She verbalizes understanding and agrees with this plan. - Lab Data Result diagrams: 12/24/18 22:00 12/24/18 22:00 Lab Results 12/24/18 12/24/18 12/24/18 Range/Units 22:00 22:00 22:00 WBC 8.0 (3.8-10.6) k/uL RBC 4.73 (3.80-5.40) m/uL Hgb 13.3 (11.4-16.0) gm/dL Hct 42.2 (34.0-46.0) % MCV 89.2 (80.0-100.0) fL MCH 28.1 (25.0-35.0) pg MCHC 31.5 (31.0-37.0) g/dL RDW 14.0 (11.5-15.5) % Plt Count 271 (150-450) k/uL Neutrophils % 71 % Lymphocytes % 21 % Monocytes % 4 % Eosinophils % 4 % Basophils % 0 % Neutrophils # 5.7 (1.3-7.7) k/uL Lymphocytes # 1.7 (1.0-4.8) k/uL Monocytes # 0.3 (0-1.0) k/uL Eosinophils # 0.3 (0-0.7) k/uL Basophils # 0.0 (0-0.2) k/uL PT 10.1 (9.0-12.0) sec INR 0.9 (<1.2) APTT 24.7 (22.0-30.0) sec D-Dimer 0.58 (<0.60) mg/L FEU Sodium 140 (137-145) mmol/L Potassium 3.7 (3.5-5.1) mmol/L Chloride 108 H (98-107) mmol/L Carbon Dioxide 26 (22-30) mmol/L Anion Gap 6 mmol/L BUN 11 (7-17) mg/dL Creatinine 0.63 (0.52-1.04) mg/dL Est GFR (CKD-EPI)AfAm >90 (>60 ml/min/1.73 sqM) Est GFR (CKD-EPI)NonAf >90 (>60 ml/min/1.73 sqM) Glucose 98 (74-99) mg/dL Calcium 9.3 (8.4-10.2) mg/dL Magnesium 1.8 (1.6-2.3) mg/dL Total Bilirubin 0.4 (0.2-1.3) mg/dL AST 16 (14-36) U/L ALT 24 (9-52) U/L Alkaline Phosphatase 87 (38-126) U/L Troponin I (0.000-0.034) ng/mL Total Protein 7.2 (6.3-8.2) g/dL Albumin 3.9 (3.5-5.0) g/dL 12/24/18 Range/Units 22:00 WBC (3.8-10.6) k/uL RBC (3.80-5.40) m/uL Hgb (11.4-16.0) gm/dL Hct (34.0-46.0) % MCV (80.0-100.0) fL MCH (25.0-35.0) pg MCHC (31.0-37.0) g/dL RDW (11.5-15.5) % Plt Count (150-450) k/uL Neutrophils % % Lymphocytes % % Monocytes % % Eosinophils % % Basophils % % Neutrophils # (1.3-7.7) k/uL Lymphocytes # (1.0-4.8) k/uL Monocytes # (0-1.0) k/uL Eosinophils # (0-0.7) k/uL Basophils # (0-0.2) k/uL PT (9.0-12.0) sec INR (<1.2) APTT (22.0-30.0) sec D-Dimer (<0.60) mg/L FEU Sodium (137-145) mmol/L Potassium (3.5-5.1) mmol/L Chloride (98-107) mmol/L Carbon Dioxide (22-30) mmol/L Anion Gap mmol/L BUN (7-17) mg/dL Creatinine (0.52-1.04) mg/dL Est GFR (CKD-EPI)AfAm (>60 ml/min/1.73 sqM) Est GFR (CKD-EPI)NonAf (>60 ml/min/1.73 sqM) Glucose (74-99) mg/dL Calcium (8.4-10.2) mg/dL Magnesium (1.6-2.3) mg/dL Total Bilirubin (0.2-1.3) mg/dL AST (14-36) U/L ALT (9-52) U/L Alkaline Phosphatase (38-126) U/L Troponin I <0.012 (0.000-0.034) ng/mL Total Protein (6.3-8.2) g/dL Albumin (3.5-5.0) g/dL - Radiology Data Radiology results: report reviewed, image reviewed Two-view x-ray of the chest is obtained. Report was reviewed in its entirety. Impression by Dr. Sanchez shows normal heart size. No consolidation or pleural effusion. Disposition Clinical Impression: Acute bronchitis Disposition: HOME SELF-CARE Condition: Good Instructions (If sedation given, give patient instructions): Acute Bronchitis ( ED) Additional Instructions: Follow up with your primary care physician for recheck as soon as possible. Discussion blood pressure. Complete medications as directed. Return to the emergency department immediately for any new, worsening, or concerning symptoms. Prescriptions: Albuterol Sulfate [Proair Hfa] 1 - 2 puff INHALATION Q6HR PRN #1 inhaler PRN Reason: Shortness Of Breath Benzonatate [Tessalon Perles] 100 mg PO TID #15 cap predniSONE 50 mg PO DAILY #5 tablet Promethazine 6.25MG/5Ml [Phenergan Syrup] 6.25 mg PO HS #100 ml Is patient prescribed a controlled substance at d/c from ED?: No Referrals: Sung Gipson MD [Primary Care Provider] - 1-2 days Time of Disposition: 23:18
--- NOTE | 2018-12-24 22:47 | XR ---
EXAM: XR Chest, 2 Views CLINICAL HISTORY: ITS.REASON XR Reason: Chest Pain TECHNIQUE: Frontal and lateral views of the chest. COMPARISON: 01/04/17 chest x-ray IMPRESSION: Normal heart size. No consolidation or pleural effusion.
[2018-12-24 22:48] VITALS: BP 146/85; PULSE 91; TEMP 98.1
== END 2018-12-24 23:35 | disposition home or self-care (01) ==
LOC: EC 21:07
DX: J20.9 Acute bronchitis, unspecified (principal); R00.0 Tachycardia, unspecified; E78.5 Hyperlipidemia, unspecified; F41.9 Anxiety disorder, unspecified; F17.200 Nicotine dependence, unspecified, uncomplicated; Z79.82 Long term (current) use of aspirin; Z79.899 Other long term (current) drug therapy; Z87.39 Personal history of other diseases of the musculoskeletal system and connective tissue; Z82.5 Family history of asthma and other chronic lower respiratory diseases
CPT/HCPCS: 36415; 94640; 93005; 85379; 80053; 83735; 84484; 85025; 85610; 85730; 71046; 99285; 96374; 96375; J2930; J1885

== ENCOUNTER 2021-10-07 18:41 | Emergency (ER) | payer OTHER ==
--- NOTE | 2021-10-07 20:46 | XR ---
EXAMINATION TYPE: XR chest 2V DATE OF EXAM: 10/07/2021 COMPARISON: 12/24/2018 HISTORY: Chest pain TECHNIQUE: 2 views FINDINGS: There is a very small patch of infiltrate left lower lobe. Heart and mediastinum are normal . Diaphragm is normal. Bony thorax is intact. IMPRESSION: Small infiltrate left lower lobe. This appears new compared to old exam. Normal heart.
[2021-10-07] MEDS ORDERED: BENZONATATE 100 MG CAP PO STA (21:25)
[2021-10-07] MEDS ORDERED: predniSONE 50 MG TAB PO STA (21:25)
[2021-10-07] MEDS ORDERED: IPRATROPIUM-ALBUTEROL 3 ML NEB INHALATION STA (21:25)
[2021-10-07] MEDS ORDERED: cefTRIAXone 1,000 MG VIAL (IM USE) IM STA (21:25)
[2021-10-07] MEDS ORDERED: AZITHROMYCIN 250 MG TAB PO STA (21:26)
--- NOTE | 2021-10-07 21:32 | ED ---
General Adult HPI - General Chief complaint: Upper Respiratory Infection Stated complaint: DAVY Time Seen by Provider: 10/07/21 21:20 Source: patient, RN notes reviewed Mode of arrival: ambulatory Limitations: no limitations - History of Present Illness Initial comments: This is a 41-year-old female presents emergency Department chief complaint cough congestion. Patient states she's been sick last few days. Patient was a fever chills and aches and cough. She has mild shortness breath states that she's had bronchitis recurrent but denies any history of asthma or COPD denies any nausea, vomiting diarrhea constipation no ear pain no sore throat mild nasal congestion. - Related Data Home Medications Medication Instructions Recorded Confirmed Cyclobenzaprine [Flexeril] 10 mg PO TID PRN 07/11/15 02/23/17 Ibuprofen [Motrin] 800 mg PO QID PRN 07/11/15 02/23/17 ALPRAZolam [Xanax] 0.25 mg PO TID PRN 01/04/17 02/23/17 Aspirin 81 mg PO DAILY 01/04/17 02/23/17 Atorvastatin [Lipitor] 40 mg PO DAILY 01/04/17 02/23/17 PARoxetine HCL [Paxil] 40 mg PO DAILY 01/04/17 02/23/17 Acetaminophen Tab [Tylenol Tab] 2,000 mg PO BID PRN 02/23/17 02/23/17 Previous Rx's Medication Instructions Recorded Clopidogrel [Plavix] 75 mg PO DAILY #30 tab 01/05/17 HYDROcodone/APAP 5-325MG [[place] 1 tab PO Q6HR PRN #12 tab 02/24/17 5-325] predniSONE [Deltasone] 40 mg PO DAILY 4 Days tab 02/24/17 Albuterol Sulfate [Proair Hfa] 1 - 2 puff INHALATION Q6HR PRN #1 12/24/18 inhaler Benzonatate [Tessalon Perles] 100 mg PO TID #15 cap 12/24/18 Promethazine 6.25MG/5Ml [Phenergan 6.25 mg PO HS #100 ml 12/24/18 Syrup] predniSONE 50 mg PO DAILY #5 tablet 12/24/18 Allergies Allergy/AdvReac Type Severity Reaction Status Date / Time No Known Allergies Allergy Verified 10/07/21 19:09 Review of Systems ROS Statement: Those systems with pertinent positive or pertinent negative responses have been documented in the HPI. ROS Other: All systems not noted in ROS Statement are negative. Past Medical History Past Medical History: CVA/TIA, Hyperlipidemia Additional Past Medical History / Comment(s): back pain, CVA History of Any Multi-Drug Resistant Organisms: None Reported Past Surgical History: Hernia Repair, Tubal Ligation Past Anesthesia/Blood Transfusion Reactions: No Reported Reaction Past Psychological History: Anxiety Past Alcohol Use History: Occasional Past Drug Use History: None Reported - Past Family History Father Family Medical History: Cancer Additional Family Medical History / Comment(s): colon CA Mother Family Medical History: Asthma, Diabetes Mellitus General Exam Limitations: no limitations General appearance: alert, in no apparent distress Head exam: Present: atraumatic, normocephalic, normal inspection Eye exam: Present: normal appearance, PERRL, EOMI. Absent: scleral icterus, conjunctival injection, periorbital swelling ENT exam: Present: normal exam, normal oropharynx, mucous membranes moist Neck exam: Present: normal inspection, full ROM. Absent: tenderness, meningismus, lymphadenopathy Respiratory exam: Present: wheezes. Absent: normal lung sounds bilaterally, respiratory distress, rales, rhonchi, stridor Cardiovascular Exam: Present: regular rate, normal rhythm, normal heart sounds. Absent: systolic murmur, diastolic murmur, rubs, gallop, clicks GI/Abdominal exam: Present: soft, normal bowel sounds. Absent: distended, tenderness, guarding, rebound, rigid Course Vital Signs 10/07/21 19:05 Temperature 98.7 F Pulse Rate 103 H Respiratory 24 Rate Blood Pressure 146/98 O2 Sat by Pulse 99 Oximetry Medical Decision Making - Medical Decision Making Patient is COVID-19 negative, chest x-ray shows evidence of pneumonia. Patient did receive DuoNeb treatment, steroid, Rocephin, azithromycin patient we discharged condition return parameters were discussed. - Lab Data Lab Results 10/07/21 Range/Units 19:11 Coronavirus (PCR) Not Detected (Not Detectd) Disposition Clinical Impression: Pneumonia Disposition: HOME SELF-CARE Condition: Stable Instructions (If sedation given, give patient instructions): Pneumonia (ED) Additional Instructions: Please return to the Emergency Department if symptoms worsen or any other concerns. Is patient prescribed a controlled substance at d/c from ED?: No Referrals: Sung Gipson MD [Primary Care Provider] - 1-2 days Time of Disposition: 21:31
[2021-10-07 22:30] VITALS: RESP 20
[2021-10-07 22:32] VITALS: BP 148/90; PULSE 90; TEMP 98.9
== END 2021-10-07 22:30 | disposition home or self-care (01) ==
LOC: EC 18:41
DX: J18.9 Pneumonia, unspecified organism (principal); Z20.822 Contact with and (suspected) exposure to COVID-19; E78.5 Hyperlipidemia, unspecified; Z79.899 Other long term (current) drug therapy; Z86.73 Personal history of transient ischemic attack (TIA), and cerebral infarction without residual deficits
CPT/HCPCS: 94640; 87635; 71046; 99285; 96372; J0696; J7512